=== PATIENT | male | born 1980 | race African-American/Black ===

== ENCOUNTER 2019-01-29 03:02 | Emergency (ER) | payer BC ==
[2019-01-29] MEDS ORDERED: Lidocaine 1% 30 ML SDV ONE (03:16)
[2019-01-29] MEDS ORDERED: Lidocaine 1% 10 ML MDV INJECT ONE (03:16)
[2019-01-29] MEDS ORDERED: Lidocaine 1% 10 ML MDV ONE (03:18)
--- NOTE | 2019-01-29 03:19 | EDM.PDOC ---
ED HPI GENERAL MEDICAL PROBLEM - General Chief Complaint: Laceration Stated Complaint: hand laceration Time Seen by Provider: 01/29/19 03:16 Source of Information: Reports: Patient History Limitations: Reports: No Limitations - History of Present Illness INITIAL COMMENTS - FREE TEXT/NARRATIVE: The patient was cutting open a vitamin pack for his baby and he cut his left little finger. He is right handed and his tetanus is up to date. Onset: Sudden Duration: Minutes: Location: Reports: Upper Extremity, Left (Little finger laceration) Quality: Reports: Sharp Severity: Mild Improves with: Reports: None Worsens with: Reports: None Associated Symptoms: Reports: No Other Symptoms Left Hand Pain Score (Numeric/FACES): 2 - Related Data Allergies Allergy/AdvReac Type Severity Reaction Status Date / Time No Known Allergies Allergy Verified 01/29/19 03:11 Home Meds: Home Meds . [No Known Home Meds] 01/29/19 [History] ED ROS GENERAL - Review of Systems Review Of Systems: See Below Constitutional: Reports: No Symptoms HEENT: Reports: No Symptoms Respiratory: Reports: No Symptoms Cardiovascular: Reports: No Symptoms Endocrine: Reports: No Symptoms GI/Abdominal: Reports: No Symptoms : Reports: No Symptoms Musculoskeletal: Reports: Other (Laceration to the left little finger) ED EXAM, SKIN/RASH Exam: See Below Exam Limited By: No Limitations General Appearance: Alert, No Apparent Distress Ears: Normal External Exam Nose: Normal Inspection Head: Atraumatic, Normocephalic Neck: Normal Inspection Respiratory/Chest: No Respiratory Distress Extremities: Other (0.75cm laceration to the distal left little finger. Good sensation and capillary refill distally) ED SKIN PROCEDURES - Laceration/Wound Repair Left Digit - 5th (Baby) Appearance: Superficial Distal NVT: Neuro & Vascular Intact, No Tendon Injury Anesthetic Type: Local Local Anesthesia - Lidocaine (Xylocaine): 1% Plain Skin Prep: Saline Exploration/Debridement/Repair: Wound Explored, In a Bloodless Field, Explored to Base Closed with: Sutures Lac/Wound length In cm: 0.7 Suture Size: 5-0 # of Sutures: 2 Suture Type: Nylon, Interrupted Tetanus Status Addressed: Yes Complications: No Course - Vital Signs Last Recorded V/S: Last Vital Signs Temp 96.9 F 01/29/19 03:08 Pulse 65 11/15/19 03:08 Resp 18 01/29/19 03:08 BP 150/90 H 01/29/19 03:08 Pulse Ox 99 01/29/19 03:08 - Orders/Labs/Meds Meds: Medications Discontinued Medications Generic Name Dose Route Start Last Admin Trade Name Leonel PRN Reason Stop Dose Admin Lidocaine HCl 10 ml 01/29/19 03:16 01/29/19 03:19 Xylocaine 1% INJECT 01/29/19 03:17 10 ml ONETIME ONE Administration Lidocaine HCl Confirm 01/29/19 03:16 Xylocaine-Mpf 1% Administered 01/29/19 03:17 Dose 30 ml .ROUTE .STK-MED ONE Lidocaine HCl Confirm 01/29/19 03:18 Xylocaine 1% Administered 01/29/19 03:19 Dose 10 ml .ROUTE .STK-MED ONE Departure - Departure Time of Disposition: 03:35 Disposition: Home, Self-Care 01 Condition: Good Clinical Impression: Finger laceration Qualifiers: Encounter type: initial encounter Finger: little finger Damage to nail status: without damage Foreign body presence: without foreign body Laterality: left Qualified Code(s): S61.217A - Laceration without foreign body of left little finger without damage to nail, initial encounter - Discharge Information *PRESCRIPTION DRUG MONITORING PROGRAM REVIEWED*: No *COPY OF PRESCRIPTION DRUG MONITORING REPORT IN PATIENT TOMASZ: No Referrals: PCP,None [Primary Care Provider] - Forms: ED Department Discharge Additional Instructions: Soak your finger in warm soapy water 2 times per day. Have your sutures removed in 1 week. Look for signs of infection such as redness, swelling, pain , or discharge. If you see any of these signs, please return or see your doctor. You may need oral antibiotics.
== END 2019-01-29 03:40 | disposition home or self-care (01) ==
LOC: JD.ED 03:02
DX: S61.217A Laceration without foreign body of left little finger without damage to nail, initial encounter (principal); W26.0XXA Contact with knife, initial encounter
CPT/HCPCS: 12001; 99282; J2001

== ENCOUNTER 2019-02-05 20:09 | Emergency (ER) | payer BC | END 2019-02-05 20:33 | LOC: JD.ED 20:09 | DX: Z48.02 Encounter for removal of sutures (principal) | CPT/HCPCS: 99281 ==